=== PATIENT | female | born 1965 | race Two or more races ===

== ENCOUNTER 2018-11-16 09:45 | Outpatient (CLI) | payer OTHER | END 2018-11-16 11:21 | disposition home or self-care (01) | LOC: NUCLEAR 09:45 | DX: I49.3 Ventricular premature depolarization (principal) ==

== ENCOUNTER → 2018-11-23 | Outpatient (CLI) | payer OTHER | END | disposition home or self-care (01) | LOC: MAMO-SONO 11-16 11:15 | DX: N60.11 Diffuse cystic mastopathy of right breast (principal); N60.12 Diffuse cystic mastopathy of left breast ==

== ENCOUNTER 2019-11-22 09:02 | Outpatient (CLI) | payer OTHER | END 2019-11-22 09:14 | disposition home or self-care (01) | LOC: NUCLEAR 09:02 | DX: I49.3 Ventricular premature depolarization (principal); I50.32 Chronic diastolic (congestive) heart failure ==

== ENCOUNTER → 2020-11-27 13:26 | Outpatient (CLI) | payer OTHER | END | disposition home or self-care (01) | LOC: NUCLEAR 13:26 | PROVIDERS: ATTEND Specialist | DX: I50.32 Chronic diastolic (congestive) heart failure (principal); I49.3 Ventricular premature depolarization; I10 Essential (primary) hypertension ==

== ENCOUNTER → 2022-10-14 | Outpatient (CLI) | payer OTHER | END | disposition home or self-care (01) | LOC: NUCLEAR 09:54 | PROVIDERS: ATTEND Internal Medicine Cardiovascular Disease | DX: I49.3 Ventricular premature depolarization (principal); I50.32 Chronic diastolic (congestive) heart failure; I13.10 Hypertensive heart and chronic kidney disease without heart failure, with stage 1 through stage 4 chronic kidney disease, or unspecified chronic kidney disease ==

== ENCOUNTER 2022-11-04 08:24 | Outpatient (CLI) | payer OTHER | END 2022-11-04 08:27 | disposition home or self-care (01) | LOC: NUCLEAR 08:24 | PROVIDERS: ATTEND Specialist | DX: R76.0 Raised antibody titer (principal) | CPT/HCPCS: 78315; A9503 ==